=== PATIENT | female | born 1975 | race Caucasian/White ===

== ENCOUNTER 2017-05-09 05:32 | Day surgery (SDC) | payer OTHER ==
[~2017-05-09] VITALS: Ht 157.5 cm; Wt 75.7 kg
[~2017-05-09 05:32] MED LIST: MOTRIN600 MG PO
[2017-05-09 06:06] VITALS: BP 130/72
[2017-05-09] MEDS ORDERED: NORCO 5/3251 TABLET PO (10:14)
[2017-05-09 11:25] VITALS: BP 121/58
[2017-05-09 12:39] VITALS: BP 128/71
[2017-05-09 13:23] VITALS: BP 127/75
== END 2017-05-09 13:20 | disposition home or self-care (01) ==
LOC: SDC 05:32
PROC: 0WUF4JZ Supplement Abdominal Wall with Synthetic Substitute, Percutaneous Endoscopic Approach (ICD-10-PCS; principal; 2017-05-09)
DX: K43.2 Incisional hernia without obstruction or gangrene (principal); F17.210 Nicotine dependence, cigarettes, uncomplicated; Z88.2 Allergy status to sulfonamides; Z82.49 Family history of ischemic heart disease and other diseases of the circulatory system; Z80.1 Family history of malignant neoplasm of trachea, bronchus and lung
CPT/HCPCS: C1781; J0131; J0330; J0690; J1100; J1170; J1885; J2250; J2405; J2710; J2765; J3010